=== PATIENT | female | born 1995 | race Caucasian/White ===

== ENCOUNTER 2017-01-09 14:23 | Outpatient (RCR) | payer OTHER ==
[~2017-01-09 14:23] MED LIST: ASPI1TAB22 PO; BUTA1TAB46 PO; ETHI1TAB16 PO
== END 2017-01-10 | disposition home or self-care (01) ==
PROVIDERS: ATTEND Nurse Practitioner
DX: M95.8 Other specified acquired deformities of musculoskeletal system (principal)

== ENCOUNTER 2017-02-25 11:30 | Outpatient (RCR) | payer OTHER ==
[~2017-02-25 11:30] MED LIST changes: +DEXAMETHASONE 4 MG/ML SYR (FOR IONTOPHORESIS) TOP SCH
== END 2017-03-04 15:27 | disposition home or self-care (01) ==
PROVIDERS: ATTEND Nurse Practitioner
DX: M95.8 Other specified acquired deformities of musculoskeletal system (principal)